=== PATIENT | male | born 1970 | race American Indian/Alaskan Native ===

== ENCOUNTER 2017-10-14 13:06 | Outpatient (CLI) | payer OTHER ==
--- NOTE | 2017-10-14 13:50 | XRay Report ---
ROUTINE CHEST, TWO VIEWS: History: Wheezing PA and lateral views demonstrate the heart and mediastinal contour to be of normal size and shape. The lungs are clear and fully expanded and the soft tissues and bony structures are normal. IMPRESSION: Normal study.
== END 2017-10-14 13:07 | disposition home or self-care (01) ==
LOC: XRAY 13:06
PROVIDERS: ATTEND Family Medicine
DX: R06.2 Wheezing (principal)
CPT/HCPCS: 71020

== ENCOUNTER 2020-01-18 19:49 | Emergency (ER) | payer OTHER ==
[2020-01-19] MEDS ORDERED: MORPHINE 2 MG/1 ML INJ IV ONE (00:06)
[2020-01-19] MEDS ORDERED: ONDANSETRON 4 MG/2 ML INJ IV ONE (00:06)
[2020-01-19] MEDS ORDERED: FAMOTIDINE 20 MG/2 ML INJ IV ONE (00:06)
[2020-01-19 00:51] LABS: Basophils # (Auto) 0.1 K/mm3 (0.0-0.1); Basophils % (Auto) 1.5 % (0.0-1.8); Eosinophils # (Auto) 0.6 K/mm3 (0.0-0.4); Eosinophils % (Auto) 9.3 % (0.0-4.3); Hematocrit 45.5 % (35.5-45.6); Hemoglobin 15.2 gm/dl (11.8-15.2); Lymphocytes # (Auto) 2.6 K/mm3 (1.2-5.4); Lymphocytes % (Auto) 40.8 % (13.4-35.0); Mean Corpuscular HGB Conc 33 % (32-34); Mean Corpuscular Volume 87 fl (84-94); Monocytes # (Auto) 0.6 K/mm3 (0.0-0.8); Platelet Count 321 K/mm3 (140-440); Red Blood Count 5.21 M/mm3 (3.65-5.03); Red Cell Distribution Width 13.7 % (13.2-15.2)
[2020-01-19 01:07] LABS: Alanine Aminotransferase 18 units/L (7-56); Albumin 4.2 g/dL (3.9-5); BUN/Creatinine Ratio 10; Blood Urea Nitrogen 10 mg/dL (9-20); Calcium 9.5 mg/dL (8.4-10.2); Hemolysis Index 7
--- NOTE | 2020-01-19 02:30 | Cat Scan Report ---
CT OF THE ABDOMEN AND PELVIS WITH INTRAVENOUS CONTRAST INDICATION / CLINICAL INFORMATION: Left lower abdominal pain. TECHNIQUE: The patient received 100 cc Omnipaque [address] scans at this location are performed using CT dose reduction for ALARA by means of automated exposure control. COMPARISON: None available. FINDINGS: ABDOMEN: The liver, spleen, gallbladder, bile ducts, pancreas, adrenal glands, kidneys and bowel demo nstrate no significant abnormality. No adenopathy is seen. There is mild bibasilar dependent atelecta sis. PELVIS: There are multiple left colonic diverticula without acute inflammation. The appendix is not s een. The distal ureters, urinary bladder and prostate gland are unremarkable. No abnormal mass or flu id collection is seen. I do not identify a hernia. No acute osseous abnormality is noted. IMPRESSION: 1. No acute intra-abdominal disease is identified. 2. Left colonic diverticulosis without CT evidence of acute diverticulitis. Signer Name: Luis Sanchez MD Signed: 01/19/2020 2:26 AM Workstation Name: [id number]
--- NOTE | 2020-01-19 02:43 | Emergency Department Report ---
ED Abdominal Pain HPI - General Chief Complaint: Abdominal Pain Stated Complaint: ABD PAIN Source: patient Mode of arrival: Ambulatory Limitations: No Limitations - History of Present Illness Initial Comments: Patient is a 49-year-old -[place] male with no past medical history who presents to the ED with complaint of acute onset persistent diffuse abdominal pain with nausea and vomiting and diarrhea for the last 1 week. Patient states that in the last 2 days the pain has worsened. Patient denies dysuria, urinary frequency and urgency, headache, dizziness, chest pain, shortness of breath, hematochezia, hematemesis, fever, chills, sore throat, back pain, testicular pain or change in vision and headache. MD Complaint: abdominal pain, other (nausea) -: Sudden, week(s) (1) Location: diffuse Radiation: none Migration to: no migration Severity: moderate Severity scale (0 -10): 5 Quality: cramping, aching Consistency: intermittent Improves With: nothing Worsens With: nothing Associated Symptoms: denies other symptoms, nausea, diarrhea. denies: vomiting, fever, chills, dysuria, hematemesis, hematochezia, melena, hematuria, anorexia, syncope - Related Data Previous Rx's Medication Instructions Recorded Last Taken Type Dicyclomine [Bentyl] 20 mg PO Q6H PRN #30 tablet 01/19/20 Unknown Rx Famotidine [Pepcid] 20 mg PO Q12H #60 tablet 01/19/20 Unknown Rx Ondansetron [Zofran Odt] 4 mg PO Q6HR PRN #20 tab.rapdis 01/19/20 Unknown Rx Allergies Allergy/AdvReac Type Severity Reaction Status Date / Time No Known Allergies Allergy Unverified 10/14/17 13:07 ED Review of Systems ROS: Stated complaint: ABD PAIN Other details as noted in HPI Constitutional: denies: chills, fever Eyes: denies: eye pain, eye discharge, vision change ENT: denies: ear pain, throat pain Respiratory: denies: cough, shortness of breath, wheezing Cardiovascular: denies: chest pain, palpitations Endocrine: no symptoms reported Gastrointestinal: abdominal pain, nausea, diarrhea Genitourinary: denies: urgency, dysuria Musculoskeletal: denies: back pain, joint swelling, arthralgia Skin: denies: rash, lesions Neurological: denies: headache, weakness, paresthesias Psychiatric: denies: anxiety, depression Hematological/Lymphatic: denies: easy bleeding, easy bruising ED Past Medical Hx - Medications Home Medications: Home Medications Medication Instructions Recorded Confirmed Last Taken Type Dicyclomine [Bentyl] 20 mg PO Q6H PRN #30 tablet 01/19/20 Unknown Rx Famotidine [Pepcid] 20 mg PO Q12H #60 tablet 01/19/20 Unknown Rx Ondansetron [Zofran Odt] 4 mg PO Q6HR PRN #20 tab.rapdis 01/19/20 Unknown Rx ED Physical Exam - General Limitations: No Limitations General appearance: alert, in no apparent distress - Head Head exam: Present: atraumatic, normocephalic, normal inspection - Eye Eye exam: Present: normal appearance, PERRL, EOMI Pupils: Present: normal accommodation - ENT ENT exam: Present: normal exam, normal orophraynx, mucous membranes moist, TM's normal bilaterally, normal external ear exam - Neck Neck exam: Present: normal inspection, full ROM - Respiratory Respiratory exam: Present: normal lung sounds bilaterally. Absent: respiratory distress, wheezes, rales, rhonchi, chest wall tenderness, accessory muscle use, decreased breath sounds, prolonged expiratory - Cardiovascular Cardiovascular Exam: Present: regular rate, normal rhythm, normal heart sounds. Absent: systolic murmur, diastolic murmur, rubs, gallop - GI/Abdominal GI/Abdominal exam: Present: soft, tenderness (diffusely tender to palpation; no guarding or rebound), normal bowel sounds. Absent: guarding, rebound, hyperactive bowel sounds, hypoactive bowel sounds, organomegaly - Extremities Exam Extremities exam: Present: normal inspection, full ROM, normal capillary refill - Back Exam Back exam: Present: normal inspection, full ROM. Absent: tenderness, CVA tenderness (R), CVA tenderness (L), muscle spasm, vertebral tenderness - Neurological Exam Neurological exam: Present: alert, oriented X3, CN II-XII intact, normal gait, reflexes normal - Psychiatric Psychiatric exam: Present: normal affect, normal mood - Skin Skin exam: Present: warm, dry, intact, normal color. Absent: rash ED Course Vital Signs 01/18/20 20:23 Temperature 98.3 F Pulse Rate 63 Respiratory 20 Rate Blood Pressure 138/90 O2 Sat by Pulse 99 Oximetry ED Medical Decision Making - Lab Data Result diagrams: 01/19/20 00:18 01/19/20 00:18 - Radiology Data Radiology results: report reviewed, image reviewed Findings [facility] [address] [place] [address] Cat Scan Report Signed Patient: PHILLIP ROGERS MR#: [id number] : 1970 Acct:[id number] Age/Sex: 49 / M ADM Date: 01/18/20 Loc: ED Attending Dr: Ordering Physician: JAYA BAEZ Date of Service: 01/19/20 Procedure(s): CT abdomen pelvis w con Accession Number(s): [id number] cc: JAYA BAEZ CT OF THE ABDOMEN AND PELVIS WITH INTRAVENOUS CONTRAST INDICATION / CLINICAL INFORMATION: Left lower abdominal pain. TECHNIQUE: The patient received 100 cc Omnipaque [address] scans at this location are performed using CT dose reduction for ALARA by means of automated exposure control. COMPARISON: None available. FINDINGS: ABDOMEN: The liver, spleen, gallbladder, bile ducts, pancreas, adrenal glands, kidneys and bowel demonstrate no significant abnormality. No adenopathy is seen. There is mild bibasilar dependent atelectasis. PELVIS: There are multiple left colonic diverticula without acute inflammation. The appendix is not seen. The distal ureters, urinary bladder and prostate gland are unremarkable. No abnormal mass or fluid collection is seen. I do not identify a hernia. No acute osseous abnormality is noted. IMPRESSION: 1. No acute intra-abdominal disease is identified. 2. Left colonic diverticulosis without CT evidence of acute diverticulitis. Signer Name: Luis Sanchez MD Signed: 01/19/2020 2:26 AM Workstation Name: [id number] Transcribed By: RT Dictated By: Luis Sanchez MD Electronically Authenticated By: Luis Sanchez MD Signed Date/Time: 01/19/20225 DD/ 1 TD/TT: - Medical Decision Making This is a 49-year-old male with no past medical history who presented to the ED with complaint of acute onset persistent diffuse abdominal pain with nausea and vomiting intermittently for the last 1 week. In the ED, patient is alert and oriented x3 and is not in distress. Patient was treated for pain in the ED lab test results were reviewed and are all nonactionable. Abdomen pelvis CT scan with contrast shows no acute abdominal and pelvis abnormalities. There is however left colonic diverticulosis without CT evidence of acute diverticulitis. On reevaluation, patient's pain is well controlled with medications. Patient was discharged home on medications for pain and also for nausea and vomiting and was advised to follow-up with his primary care physician in 5 to 7 days for reevaluation or return to the ED immediately if symptoms get worse. - Differential Diagnosis Gastritis; Gastroenteritis; Diverticulitis; UTI Critical care attestation.: If time is entered above; I have spent that time in minutes in the direct care of this critically ill patient, excluding procedure time. ED Disposition Clinical Impression: Nausea, vomiting and diarrhea Abdominal pain Qualifiers: Abdominal location: generalized Qualified Code(s): R10.84 - Generalized abdominal pain Disposition: TO HOME OR SELFCARE Is pt being admited?: No Does the pt Need Aspirin: No Condition: Stable Instructions: Acute Nausea and Vomiting (ED), Abdominal Pain (ED) Additional Instructions: All lab test results are unremarkable as well as imaging report. Therefore take medication as needed for pain and nausea and vomiting. Drink plenty of fluids and follow-up with your primary care physician in 7 to 10 days for reevaluation. Return to the ED immediately if symptoms get worse. Prescriptions: Dicyclomine [Bentyl] 20 mg PO Q6H PRN #30 tablet PRN Reason: Pain , Severe (7-10) Famotidine [Pepcid] 20 mg PO Q12H #60 tablet Ondansetron [Zofran Odt] 4 mg PO Q6HR PRN #20 tab.rapdis PRN Reason: Nausea Referrals: [facility] [Outside] - 3-5 Days Time of Disposition: 02:44 Print Language: YAKUT
[2020-01-19 05:07] VITALS: BP 124/78
== END 2020-01-19 03:25 | disposition home or self-care (01) ==
LOC: ED 19:49
DX: R11.2 Nausea with vomiting, unspecified (principal); R10.9 Unspecified abdominal pain; R19.7 Diarrhea, unspecified; Z79.899 Other long term (current) drug therapy
CPT/HCPCS: 36415; 74177; 80053; 83690; 85025; 96374; 96375; 99284; J2270; J2405; Q9967